=== PATIENT | female | born 1990 | race Caucasian/White ===

== ENCOUNTER 2017-01-20 17:49 | Emergency (ER) | payer MEDICAID ==
[~2017-01-20] VITALS: Ht 160 cm; Wt 65.1 kg
[~2017-01-20 17:49] MED LIST: (None)250 MG PO; AMOXICILLIN500 MG PO; BACTRIM DS1 TAB PO; BCP; CIPRO500 MG PO; CLINDAMYCIN2 % VA; COLACE100 MG PO; CONCEPT OB PO; DICLOXACILL500 MG PO; DOXYCYCL HYC100 MG PO; FLAGYL500 MG OR; FLORASTOR250 M1 PO; IBUPROFEN600 MG PO; LEVAQUIN750 MG PO; LORTAB 5/3255 MG PO; LORTAB5 OR; LORTAB5 PO; LYPHOCIN1 GM PO; MACROBID100 MG OR; MACROBID100 MG PO; MAG CITRATE OR; METOCLOPRAM5 MG PO; METROGEL VAG0.75 % VA; METRONIDAZOLE500 MG PO; MIRALAX3350 NF PO; MIRENA IU; MOTRIN600 MG/TAB PO; MYLANTA1 ML PO; NAPROSYN500 MG PO; NAPROXEN DR375 M1 PO; NASACORT AQ55 MCG/AC; NO HOME MEDS; PERCOCET 5/325M1 TAB PO; PHENERGAN12.5 MG/TA PO; PHENERGAN25 MG RE; PHENERGAN25 MG/TAB PO; PRENATA4 OR; PROCARDIA10 MG PO; PROMETHAZINE25 MG OR; PROMETHAZINE25 MG PO; ROBITUSSIN AC10 ML PO; TOBRAMYCIN0.3 % OU; TUBERSOL5 MG/0.1 M ID; TUSSIONEX1 ML PO; ULTRAM50 M1 PO; ZOFRAN ODT4 MG PO; ZOFRAN ODT8 MG SL; ZOFRAN4 M1 OR; ZOFRAN4 MG/TAB PO; ZPAK PO; [UNRECOGNIZED DRUG - OTHER] PO
[2017-01-20] MEDS ORDERED: AMOX/K CLAV875 M1 PO (20:27)
[2017-01-20] MEDS ORDERED: LORTAB 10-325 M1 TAB PO (20:27)
[2017-01-20 21:05] VITALS: BP 117/74
[2017-01-21] MEDS ORDERED: PHENERGAN25 MG/TAB PO (21:43)
[2017-01-22] MEDS ORDERED: BACTRIM DS1 TAB PO (02:41)
== END 2017-01-20 21:04 | disposition home or self-care (01) | DRG 605 ==
LOC: ED 17:49
PROC: 0HQFXZZ Repair Right Hand Skin, External Approach (ICD-10-PCS; principal; 2017-01-20)
PROC: 0HQDXZZ Repair Right Lower Arm Skin, External Approach (ICD-10-PCS; 2017-01-20)
PROC: 0HQGXZZ Repair Left Hand Skin, External Approach (ICD-10-PCS; 2017-01-20)
DX: S61.511A Laceration without foreign body of right wrist, initial encounter (principal); E05.90 Thyrotoxicosis, unspecified without thyrotoxic crisis or storm; S61.212A Laceration without foreign body of right middle finger without damage to nail, initial encounter; S61.411A Laceration without foreign body of right hand, initial encounter; S61.211A Laceration without foreign body of left index finger without damage to nail, initial encounter; S61.213A Laceration without foreign body of left middle finger without damage to nail, initial encounter; W54.0XXA Bitten by dog, initial encounter; Y92.009 Unspecified place in unspecified non-institutional (private) residence as the place of occurrence of the external cause

== ENCOUNTER 2017-01-21 20:45 | Emergency (ER) | payer MEDICAID ==
[~2017-01-21] VITALS: Ht 160 cm; Wt 59.0 kg
[~2017-01-21 20:45] MED LIST changes: +AMOX/K CLAV875 M1 PO; +LORTAB 10-325 M1 TAB PO
[2017-01-21] MEDS ORDERED: PHENERGAN25 MG/TAB PO (21:43)
[2017-01-21 22:05] VITALS: BP 120/87
[2017-01-22] MEDS ORDERED: BACTRIM DS1 TAB PO (02:41)
== END 2017-01-21 22:05 | disposition home or self-care (01) | DRG 950 ==
LOC: ED 20:45
DX: S61.511D Laceration without foreign body of right wrist, subsequent encounter (principal); S61.212D Laceration without foreign body of right middle finger without damage to nail, subsequent encounter; S61.411D Laceration without foreign body of right hand, subsequent encounter; S61.211D Laceration without foreign body of left index finger without damage to nail, subsequent encounter; S61.213D Laceration without foreign body of left middle finger without damage to nail, subsequent encounter; W54.0XXD Bitten by dog, subsequent encounter

== ENCOUNTER 2017-01-22 17:57 | Emergency (ER) | payer SELFPAY ==
[~2017-01-22] VITALS: Ht 160 cm; Wt 60.0 kg
[2017-01-22 20:19] VITALS: BP 115/75
== END 2017-01-22 20:19 | disposition left against medical advice (07) | DRG 951 ==
LOC: ED 17:57 → LWOBS 20:19 → ED 20:19
DX: Z91.19 Patient's noncompliance with other medical treatment and regimen (principal)

== ENCOUNTER 2017-01-23 07:26 | Emergency (ER) | payer MEDICAID ==
[~2017-01-23] VITALS: Ht 160 cm; Wt 59.0 kg
[2017-01-23 07:48] VITALS: BP 119/82
== END 2017-01-23 07:58 | disposition home or self-care (01) | DRG 950 ==
LOC: ED 07:26
DX: S61.511D Laceration without foreign body of right wrist, subsequent encounter (principal); S61.212D Laceration without foreign body of right middle finger without damage to nail, subsequent encounter; S61.411D Laceration without foreign body of right hand, subsequent encounter; S61.213D Laceration without foreign body of left middle finger without damage to nail, subsequent encounter; W54.0XXD Bitten by dog, subsequent encounter

== ENCOUNTER 2017-01-27 07:45 | Emergency (ER) | payer OTHER ==
[~2017-01-27] VITALS: Ht 160 cm; Wt 59.0 kg
[2017-01-27 08:08] VITALS: BP 126/64
[2017-01-27] MEDS ORDERED: LORTAB 5-325 MG1 TAB PO (08:10)
== END 2017-01-27 08:15 | disposition home or self-care (01) | DRG 950 ==
LOC: ED 07:45
DX: S61.511D Laceration without foreign body of right wrist, subsequent encounter (principal); S61.212D Laceration without foreign body of right middle finger without damage to nail, subsequent encounter; S61.411D Laceration without foreign body of right hand, subsequent encounter; S61.213D Laceration without foreign body of left middle finger without damage to nail, subsequent encounter; W54.0XXD Bitten by dog, subsequent encounter

== ENCOUNTER 2017-07-28 16:50 | Emergency (ER) | payer SELFPAY ==
[~2017-07-28 16:50] MED LIST changes: +LORTAB 5-325 MG1 TAB PO
== END 2017-07-28 17:20 | disposition left against medical advice (07) | DRG 951 ==
LOC: ED 16:50 → LWOBS 17:20
DX: Z91.19 Patient's noncompliance with other medical treatment and regimen (principal)

== ENCOUNTER 2019-05-12 19:45 | Emergency (ER) | payer OTHER ==
[~2019-05-12] VITALS: Ht 160 cm; Wt 60.0 kg
[2019-05-12 21:19] LABS: HEMATOCRIT 35.6 % (37.0-47.0); IMMATURE GRANULOCYTES 0.2 % (0.0-5.0); MEAN CELL VOLUME 90.4 fL CALC (80.0-100.0); MEAN CORPUSCULAR HGB 30.5 pG CALC (26.0-32.0); MEAN CORPUSCULAR HGB CONC 33.7 g/L CALC (32.0-36.0); NEUT# 2.9 thou/uL (2.00-7.15); RED BLOOD COUNT 3.94 mill/uL (4.20-5.60); RED CELL DISTRI WIDTH 12.2 % (11.5-15.5)
[2019-05-12 21:22] LABS: URINE BILIRUBIN - DIPSTICK NEGATIVE (NEGATIVE); URINE BLOOD DIPSTICK NEGATIVE (NEGATIVE); URINE COLOR YELLOW; URINE GLUCOSE - DIPSTICK NEGATIVE (NEGATIVE); URINE KETONE TRACE mg/dL (NEGATIVE); URINE LEUK ESTERASE NEGATIVE (NEGATIVE); URINE NITRITE - DIPSTICK NEGATIVE (Negative); URINE PROTEIN - DIPSTICK NEGATIVE (NEG-TRACE); URINE UROBILINOGEN - DIPSTICK 0.2 E.U./dL (0.2)
[2019-05-12 21:36] LABS: ALBUMIN 4.3 g/dL (3.2-5.0); ALKALINE PHOSPHATASE 160 u/l (38-126); AMYLASE 70 u/l (30-110); ANION GAP 11 (6-22 (CALC)); BILIRUBIN, TOTAL 0.2 mg/dL (0.0-1.4); BUN 11 mg/dL (7-17); BUN/CREATININE RATIO 21 (12-20 (CALC)); CARBON DIOXIDE 26 mmol/l (22-30); CHLORIDE 107 mmol/l (95-108); CREATININE 0.5 mg/dL (0.5-1.0); GFR > 60 ML/MIN (>=60 (CALC)); GFR FOR AFR.AMER. > 60 ML/MIN (>=60 (CALC)); LIPASE 155 u/l (23-300); SODIUM 141 mmol/l (137-146); TOTAL PROTEIN 6.9 g/dL (6.3-8.2)
[2019-05-12 21:38] LABS: SGOT/AST 50 u/l (14-36)
[2019-05-12 23:00] VITALS: BP 103/64
[2019-05-12] MEDS ORDERED: ZOFRAN4 MG/TAB PO (23:21)
[2019-05-12] MEDS ORDERED: PAIN RELIEF325 MG PO (23:30)
[2019-05-12] MEDS ORDERED: IMODIUM2 MG PO (23:30)
== END 2019-05-12 23:35 | disposition home or self-care (01) ==
LOC: ED 19:45
PROVIDERS: Emergency Medicine
DX: R10.31 Right lower quadrant pain (principal); R19.7 Diarrhea, unspecified; R11.2 Nausea with vomiting, unspecified
CPT/HCPCS: Q9967

== ENCOUNTER 2020-02-24 19:55 | Emergency (ER) | payer OTHER ==
[~2020-02-24] VITALS: Ht 160 cm; Wt 55.0 kg
[~2020-02-24 19:55] MED LIST changes: +IMODIUM2 MG PO; +PAIN RELIEF325 MG PO
[2020-02-24 20:10] VITALS: BP 127/86
[2020-02-24] MEDS ORDERED: ATIVAN1 MG PO (20:23)
== END 2020-02-24 20:41 | disposition home or self-care (01) ==
LOC: ED 19:55
DX: S00.01XA Abrasion of scalp, initial encounter (principal); W20.8XXA Other cause of strike by thrown, projected or falling object, initial encounter; Y92.009 Unspecified place in unspecified non-institutional (private) residence as the place of occurrence of the external cause

== ENCOUNTER 2021-05-17 17:45 | Emergency (ER) | payer OTHER ==
[~2021-05-17] VITALS: Ht 160 cm; Wt 50.0 kg
[~2021-05-17 17:45] MED LIST changes: +ATIVAN1 MG PO
[2021-05-17 18:48] LABS: HEMATOCRIT 36.3 % (37.0-47.0); IMMATURE GRANULOCYTES 0.1 % (0.0-5.0); MEAN CELL VOLUME 90.8 fL CALC (80.0-100.0); MEAN CORPUSCULAR HGB CONC 33.1 g/dL CAL (32.0-36.0); NEUT# 3.78 thou/uL (2.00-7.15); RED CELL DISTRI WIDTH 12.9 % (11.5-15.5)
[2021-05-17 19:10] LABS: ALBUMIN 4.7 g/dL (3.2-5.0); ALKALINE PHOSPHATASE 127 u/l (38-126); ANION GAP 18 (6-22 (CALC)); BILIRUBIN, TOTAL 0.2 mg/dL (0.0-1.4); BUN 18 mg/dL (7-17); BUN/CREATININE RATIO 28 (12-20 (CALC)); CARBON DIOXIDE 21 mmol/l (22-30); CHLORIDE 103 mmol/l (95-108); CREATININE 0.7 mg/dL (0.5-1.0); GFR > 60 ML/MIN (>=60 (CALC)); GFR FOR AFR.AMER. > 60 ML/MIN (>=60 (CALC)); POTASSIUM 3.5 mmol/l (3.5-5.1); SGOT/AST 88 u/l (14-36); SODIUM 138 mmol/l (137-146); TOTAL PROTEIN 7.7 g/dL (6.3-8.2)
[2021-05-17] MEDS ORDERED: VOLTAREN75 MG PO (21:02)
[2021-05-17 21:13] VITALS: BP 145/78
== END 2021-05-17 21:19 | disposition home or self-care (01) | DRG 552 ==
LOC: ED 17:45
DX: S16.1XXA Strain of muscle, fascia and tendon at neck level, initial encounter (principal); S39.012A Strain of muscle, fascia and tendon of lower back, initial encounter; S29.012A Strain of muscle and tendon of back wall of thorax, initial encounter; T14.8XXA Other injury of unspecified body region, initial encounter; F41.9 Anxiety disorder, unspecified; V49.9XXA Car occupant (driver) (passenger) injured in unspecified traffic accident, initial encounter
CPT/HCPCS: J2060; Q9967